=== PATIENT | male | born 1960 | race African-American/Black ===

== ENCOUNTER 2018-12-11 12:00 | Emergency (ER) | payer OTHER ==
[~2018-12-11] VITALS: Ht 177.8 cm; Wt 79.4 kg
[2018-12-11 12:09] VITALS: BP 161/95
[2018-12-11] MEDS ORDERED: DOXAZOSIN MESYLA4 MG ORAL ×2 (12:12→12:21)
[2018-12-11] MEDS ORDERED: ADALAT20 MG ORAL ×2 (12:12→12:21)
[2018-12-11] MEDS ORDERED: PROSCAR5 MG ORAL ×2 (12:12→12:21)
[2018-12-11 12:15] VITALS: BP 161/95
--- NOTE | 2018-12-11 12:15 | NUR ---
ED Nurse Note: Patient present at ER due to hypertensive medication ran out for 4 days. aao x4 and calm.
--- NOTE | 2018-12-11 12:23 | Emergency Room Report ---
History of Present Illness General Chief Complaint: Medication Refill Source: Patient Present Illness HPI 58-year-old male patient presents ER requesting refill of medications. Reports he has not been taking his medications for the past 4 days. Denies acute complaints currently, denies chest pain, shortness of breath, abdominal pain. States his been taking medications for the past 30 years. Denies side effects associated with medications. Denies other aggravating or relieving factors. Denies dizziness. Allergies: Coded Allergies: PENICILLINS (Verified Allergy, Unknown, 12/11/18) Patient History Past Medical History: see triage record Reviewed Nursing Documentation: PMH: Agreed; PSxH: Agreed Nursing Documentation-PMH Past Medical History: No History, Except For Hx Hypertension: Yes Review of Systems All Other Systems: negative except mentioned in HPI Physical Exam Vital Signs Date Time Temp Pulse Resp B/P (MAP) Pulse Ox O2 Delivery O2 Flow Rate FiO2 12/11/18 12:09 98.2 97 16 161/95 97 Room Air Sp02 EP Interpretation: reviewed, normal General Appearance: well appearing, no apparent distress, alert, GCS 15, non- toxic Head: normocephalic, atraumatic Eyes: bilateral eye normal inspection, bilateral eye PERRL ENT: hearing grossly normal, normal pharynx, no angioedema, normal voice, uvula midline, moist mucus membranes Neck: full range of motion, no meningismus Respiratory: lungs clear, normal breath sounds, no rhonchi, no respiratory distress, no accessory muscle use, no wheezing, speaking full sentences Cardiovascular #1: regular rate, rhythm, no edema Musculoskeletal: back normal, digits/nails normal, gait/station normal, normal range of motion, non-tender Skin: no rash Medical Decision Making PA Attestation Dr. Zaldivar is my supervising Physician whom patient management has been discussed with. Diagnostic Impression: Primary Impression: Encounter for medication refill ER Course pt. presents to the ED requesting prescription refill. Multiple differentials were considered. Vital signs: are WNL, pt. is afebrile ORDERS: PE benign. Lungs clear to auscultation. Patient denies acute complaints. Instructed patient follow with primary care provider for further evaluation treatment. ER does not normally provide refills of medications. ER precautions given. DISCHARGE: At this time pt is stable for d/c to home. Patient is resting comfortably, in no acute distress, nontoxic appearing, talking without difficulty. Patient to take medications as instructed Will provide with patient care instructions and any necessary prescriptions. Care plan and follow-up instructions provided. Patient instructed to follow-up with primary care provider in 3 - 5 days. Patient questions asked and answered. Patient reports understanding and agreement to treatment plan. ER precautions given. Patient instructed to return to ER immediately for any new or worsening of symptoms including but not limited to increasing SOB, persistent fever. - Please note that this Emergency Department Report was dictated using [employer] medicine physician technology software, occasionally this can lead to erroneous entry secondary to interpretation by the dictation equipment. Last Vital Signs Date Time Temp Pulse Resp B/P (MAP) Pulse Ox O2 Delivery O2 Flow Rate FiO2 12/11/18 12:09 98.2 97 16 161/95 97 Room Air Disposition: HOME, SELF-CARE Condition: Stable Scripts Nifedipine (Nifedipine*) 20 Mg Capsule 20 MG ORAL EVERY 8 HOURS for 30 Days, #90 CAP Prov: Willam Miner 12/11/18 Doxazosin Mesylate* (DOXAZOSIN MESYLATE*) 4 Mg Tablet 8 MG ORAL DAILY for 30 Days, #30 TAB Prov: Willam Miner 12/11/18 Finasteride* (PROSCAR*) 5 Mg Tablet 5 MG ORAL DAILY, #30 TAB 0 Refills Prov: Willam Miner 12/11/18 Patient Instructions: Medicine Refill at the Emergency Department Additional Instructions: Followup with primary care provider in 3 -5 days. ER does not normally provide refills of medications, follow-up with primary care provider for further evaluation and treatment. Take medications as directed. Patient questions asked and answered. ER precautions given, patient instructed to return to ER immediately for any new or worsening of symptoms. Willam Miner Dec 11, 2018 12:23
--- NOTE | 2018-12-11 13:04 | NUR ---
Patient was evaluated, treated and discharged with aftercare instructions by MD/PA
--- NOTE | 2018-12-11 13:08 | NUR ---
ER DISCHARGE NOTE: Patient is cleared to be discharged per ERMD, pt is aox4, on room air, with stable vital signs. pt was given dc and prescription instructions and was advised to follow up for medication refill in the future, pt was able to verbalize understanding, pt id band removed. pt is on wheel chair and discharged with assist and ride. pt took all belongings.
== END 2018-12-11 13:08 | disposition home or self-care (01) ==
LOC: EMR 12:28
DX: Z76.0 Encounter for issue of repeat prescription (principal); I10 Essential (primary) hypertension; Z88.0 Allergy status to penicillin
CPT/HCPCS: 99282